=== PATIENT | female | born 1970 | race Caucasian/White ===

== ENCOUNTER 2020-05-15 04:53 | Emergency (ER) | payer SELFPAY ==
[2020-05-15] MEDS ORDERED: Morphine 4 MG/ML VIAL ONE (05:32)
[2020-05-15] MEDS ORDERED: Ondansetron PF 4 MG/2 ML Vial ONE (05:32)
[2020-05-15 05:43] LABS: #Eosinphils 0.1 thou/uL (0.0-0.7); #Lymphocytes 2.5 thou/uL (1.20-3.40); #Monocytes 0.4 thou/uL (0.11-0.59); %Basophils 0.8 % (0.0-1.0); %Eosinophils 1.9 % (0.0-10.0); %Monocytes 7.3 % (0.0-10.0); %Neutrophils 49.1 % (42.0-75.0); Mean Corpuscular HGB CONC 33.3 g/dL (32.0-36.0); Mean Corpuscular Hemoglobin 28.4 pg (27.0-31.0); Mean Corpuscular Volume 85.2 fL (78.0-98.0); Mean Platelet Volume 6.6 fL (7.4-10.4); Platelet Count 396 thou/uL (130-400); RBC Distribution Width 12.7 % (11.5-14.5); Red Blood Cell (RBC) Count 4.58 mill/uL (4.20-5.40)
[2020-05-15 06:04] LABS: ALT (SGPT) 23 U/L (8-55); AST (SGOT) 20 U/L (5-34); Albumin 3.9 g/dL (3.5-5.0); Alkaline Phosphatase 116 U/L (40-110); Anion Gap 14 mmol/L (10-20); BUN (Urea Nitrogen) 23 mg/dL (7.0-18.7); Bilirubin, Total 0.2 mg/dL (0.2-1.2); Calc. Creatinine Clearance 0 mL/min (70-130); Calcium 8.6 mg/dL (7.8-10.44); Carbon Dioxide 21 mmol/L (22-29); Chloride 108 mmol/L (98-107); Estimated GFR-MDRD 66; Globulin 3.2 g/dL (2.4-3.5); Glucose 108 mg/dL (70-105); Lipase 126 U/L (8-78); Potassium 3.9 mmol/L (3.5-5.1); Protein, Total 7.1 g/dL (6.0-8.3); Sodium 139 mmol/L (136-145)
--- NOTE | 2020-05-15 07:00 | CT ---
CT ABDOMEN AND PELVIS WITH CONTRAST: Date: 05/15/2020 HISTORY: Upper abdominal pain for 2 weeks. TECHNIQUE: Multiple contiguous axial images were obtained in a CT of the abdomen and pelvis with contrast. Sagit joselo and coronal reformats were performed. FINDINGS: The gallbladder has been removed. There is mild enlargement of the biliary tree, which is likely a re servoir effect from prior cholecystectomy. No focal liver lesions are seen. The kidneys, adrenal glan ds, spleen, and pancreas are unremarkable. No free air, free fluid, or stranding changes are seen in the abdomen or pelvis. There are a few scat tered diverticula in the colon. The small bowel is unremarkable. The ileocecal lymph nodes are normal in size, but slightly increased in number. This is nonspecific. No other abnormal lymph nodes are se en in the abdomen or pelvis. The visualized inferior thorax and abdominal wall soft tissues are unremarkable. The bones are unrema rkable. IMPRESSION: 1. Diverticulosis. 2. Mild ileocecal lymph node prominence. This could be secondary to mesenteric adenitis. POS: EAA
[2020-05-15] MEDS ORDERED: Dicyclomine 20 MG TAB ONE (08:12)
[2020-05-15] MEDS ORDERED: Iopamidol 370 76% 100 ML VIAL ONE (13:59)
== END 2020-05-15 09:16 | disposition home or self-care (01) ==
LOC: ERS 04:53
DX: I88.0 Nonspecific mesenteric lymphadenitis (principal)
CPT/HCPCS: 74177; 80053; 83690; 85025; 96374; 96375; J2270; J2405; Q9967

== ENCOUNTER 2020-09-23 11:34 | Emergency (ER) | payer SELFPAY ==
[2020-09-23 17:50] LABS: SARS-CoV-2 MS2 Positive; SARS-CoV-2 N Gene Negative; SARS-CoV-2 S Gene Negative; SARS-CoV-2 by NAA Not Detected (NotDetected); SARS-CoV-2 orf1ab Negative
== END 2020-09-23 12:00 | disposition home or self-care (01) ==
LOC: ERS 11:34
DX: J02.9 Acute pharyngitis, unspecified (principal); R05 Cough; R43.0 Anosmia; R43.2 Parageusia; R52 Pain, unspecified; R09.89 Other specified symptoms and signs involving the circulatory and respiratory systems; Z20.828 Contact with and (suspected) exposure to other viral communicable diseases
CPT/HCPCS: 87635; 99283; U0003

== ENCOUNTER 2024-03-04 07:10 | Emergency (ER) | payer SELFPAY ==
[2024-03-04 08:14] LABS: #Basophils 0.04 10x3/uL (0.0-0.2); %Basophils 0.6 % (0.0-1.0); %Lymphocytes 25.3 % (21.0-51.0); %Monocytes 6.2 % (0.0-10.0); %Neutrophils 65.6 % (42.0-75.0); Hematocrit 42.2 % (36.0-47.0); Hemoglobin 13.9 g/dL (12.0-16.0); Mean Corpuscular HGB CONC 32.9 g/dL (32.0-36.0); Mean Corpuscular Hemoglobin 28.6 pg (27.0-31.0); Mean Corpuscular Volume 86.8 fL (78.0-98.0); Mean Platelet Volume 8.8 fL (7.4-10.4); Platelet Count 386 10x3/uL (130-400); RBC Distribution Width 13.2 % (11.5-14.5); Red Blood Cell (RBC) Count 4.86 mill/uL (4.20-5.40)
[2024-03-04 08:32] LABS: ALT (SGPT) 17 U/L (8-55); AST (SGOT) 13 U/L (5-34); Albumin 3.8 g/dL (3.5-5.0); Alkaline Phosphatase 102 U/L (40-110); Anion Gap 13 mmol/L (10-20); BUN (Urea Nitrogen) 22 mg/dL (9.8-20.1); Bilirubin, Total 0.3 mg/dL (0.2-1.2); Calc. Creatinine Clearance 0 mL/min (70-130); Calcium 9.5 mg/dL (7.8-10.44); Carbon Dioxide 24 mmol/L (22-29); Chloride 108 mmol/L (98-107); Estimated GFR 87; Globulin 3.5 g/dL (2.4-3.5); Glucose 77 mg/dL (70-105); Lipase 43 U/L (8-78); Magnesium 2.1 mg/dL (1.6-2.6); Potassium 3.7 mmol/L (3.5-5.1); Protein, Total 7.3 g/dL (6.0-8.3); Sodium 141 mmol/L (136-145)
[2024-03-04] MEDS ORDERED: Ibuprofen 800 MG TAB ONE (08:34)
[2024-03-04] MEDS ORDERED: Famotidine 20 MG TAB ONE (09:04)
[2024-03-04] MEDS ORDERED: Lidocaine 2% Viscous 10 mL, Alum & Magn 30 mL SSW SCH (09:15)
[2024-03-04] MEDS ORDERED: Lidocaine 4% Patch TD SCH (09:15)
[2024-03-04 09:29] LABS: Troponin I Less than 0.010 ng/mL (< 0.028)
[2024-03-04] MEDS ORDERED: Transdermal Patch Removal TOP SCH (21:00)
== END 2024-03-04 10:22 | disposition home or self-care (01) ==
LOC: ERS 07:10
DX: M46.1 Sacroiliitis, not elsewhere classified (principal); R07.9 Chest pain, unspecified; R29.898 Other symptoms and signs involving the musculoskeletal system; W18.30XA Fall on same level, unspecified, initial encounter
CPT/HCPCS: 36415; 71045; 72131; 80053; 83690; 83735; 83880; 84484; 85025; 93005